=== PATIENT | male | born 1935 ===

== ENCOUNTER 2017-07-24 10:33 | Emergency (ER) | payer MEDICARE ==
[2017-07-24 11:03] LABS: Hemoglobin 12.7 g/dL (14.0-18.0); Mean Corpuscular HGB CONC 32.8 g/dL (32.0-36.0); Mean Corpuscular Hemoglobin 32.4 pg (27.0-31.0); Mean Corpuscular Volume 98.7 fl (80.0-94.0); Mean Platelet Volume 9.8 fL (7.4-10.4); Platelet Count 142 thou/uL (130-400); Red Blood Cell (RBC) Count 3.91 mill/uL (4.70-6.10); White Blood Cell (WBC) Count 7.3 thou/uL (4.8-10.8)
--- NOTE | 2017-07-24 11:10 | RAD ---
PORTABLE CHEST 1 VIEW: Date: 07/24/17 Time: 1038 hours HISTORY: Chest pain, cough. FINDINGS: Comparison made with exam of 03/17/12. The heart size is normal. There are patchy infiltrates in the right lower lung. No pneumothoraces or pleural effusions are seen. IMPRESSION: Findings suspicious for right-sided pneumonia. POS: [facility]
[2017-07-24 11:22] LABS: ALT (SGPT) 18 U/L (8-55); AST (SGOT) 17 U/L (5-34); Albumin 3.8 g/dL (3.4-4.8); Alkaline Phosphatase 70 U/L (40-150); Anion Gap 11 mmol/L (10-20); BUN (Urea Nitrogen) 13 mg/dL (8.4-25.7); Bilirubin, Total 0.4 mg/dL (0.2-1.2); CK (CPK) 242 U/L (30-200); Calc. Creatinine Clearance 0 mL/min (70-130); Calcium 9.4 mg/dL (7.8-10.44); Carbon Dioxide 25 mmol/L (23-31); Chloride 103 mmol/L (98-107); Estimated GFR-MDRD Greater than 90; Globulin 3.5 g/dL (2.4-3.5); Glucose 141 mg/dL (83-110); Lipase 16 U/L (8-78); Potassium 3.5 mmol/L (3.5-5.1); Protein, Total 7.3 g/dL (5.8-8.1); Sodium 135 mmol/L (136-145)
[2017-07-24 11:26] LABS: CKMB 1.8 ng/mL (0-6.6); Troponin I Less than 0.010 ng/mL (< 0.028)
[2017-07-24 11:33] LABS: Band 26 % (5-11); Eosinophils 3 % (0-10); Lymphocytes 22 % (21-51); MDiff Complete? YES; Metamyelocyte 1 % (0-0); Monocytes 11 % (0-10); Neutrophil 34 % (42-75); RBC Morphology Normal; Reactive Lymphocytes 3 % (0-10)
--- NOTE | 2017-07-24 12:07 | CT ---
CTA CHEST: HISTORY: Chest pain. Elevated D-dimer. An 82-year-old male. TECHNIQUE: A contrast enhanced CTA of the chest was performed, and 2D and 3D reconstructed images were performed on an independent 3D work station. FINDINGS: CTA chest demonstrates areas of diffuse air space opacity in the right upper lobe. A patchy area is seen in the right middle lobe, the right lung base, and, to a lesser degree, in the left lower lobe. These are compatible with multilobar areas of pneumonia, predominantly in the right lung. Some coronary artery calcification is seen. No evidence of a filling defect is seen in the pulmonary arteries to suggest pulmonary emboli. No evidence of pericardial or pleural effusion is seen. Incidentally noted upper pole, anteriorly positioned right renal cortical lesion is seen, most compat ible with a cyst. Further workup using sonography to further characterize this may be of use. Multilevel lower thoracolumbar intervertebral disk degenerative changes are also seen. IMPRESSION: Multilobar pneumonia, most significant in the right lung and, to a lesser degree, in the left lung ba ses. POS: [facility]
[2017-07-24] MEDS ORDERED: Ibuprofen 200 MG TAB ONE (13:08)
[2017-07-24] MEDS ORDERED: ISOVUE-370 76%-LOCM 1 ML ONE (15:40)
--- NOTE | 2017-08-17 14:46 | EKG ---
Test Reason : Blood Pressure : / mmHG Vent. Rate : 077 BPM Atrial Rate : 077 BPM P-R Int : 162 ms QRS Dur : 098 ms QT Int : 388 ms P-R-T Axes : 027 -28 029 degrees QTc Int : 439 ms Normal sinus rhythm Moderate voltage criteria for LVH, may be normal variant Left axis deviation Borderline ECG Confirmed by DAVID WOODS, ELVIN ([id number]), proposal editor DAVON RIVERA ([id number]) on 08/17/2017 2:45:47 PM Referred By: Confirmed By:ELVIN HERNANDEZ MD
== END 2017-07-24 13:19 | disposition home or self-care (01) ==
LOC: ERS 10:33
DX: J18.9 Pneumonia, unspecified organism (principal)
CPT/HCPCS: 36415; 71045; 71275; 80053; 82550; 82553; 83690; 84484; 85025; 85379; 87040; 93005; 94760; 96374; J0696